=== PATIENT | female | born 1980 | race African-American/Black ===

== ENCOUNTER 2020-05-24 19:05 | Inpatient (IN) ==
[2020-05-24] MEDS ORDERED: LORazepam 2 mg VIAL 1 ml IM ONE (19:42)
[2020-05-24] MEDS ORDERED: diPHENhydraMINE IV 50 MG/ML 1 ml VIAL (BENADRYL) IM ONE (19:42)
[2020-05-24] MEDS ORDERED: Haloperidol 5 mg/ml SDV IV/IM 5 MG/ML AMP IM ONE (19:42)
[2020-05-24] MEDS ORDERED: Lorazepam PYXIS KEY ONE (20:05)
[2020-05-24 21:08] LABS: ABS Lymphocytes 1.1 10^3/ul (1.0-4.8); ABS Monocytes 0.6 10^3/ul (0-0.8); ABS Neutrophils 5.9 10^3/ul (1.5-7.7); Eosinophil % 0.1 %; Hematocrit 30 % (35-47); Hemoglobin 10.5 g/dL (12.0-16.0); Mean Corpuscular HGB Conc 35 g/dL (31-36); Mean Corpuscular Hemoglobin 32 pg (27-31); Mean Corpuscular Volume 92 fL (80-97); Mean Platelet Volume 9.5 fL (7.4-10.4); Platelet Count 155 10^3/uL (150-450); Red Cell Distribution Width 14 % (10-15); White Blood Count 7.6 10^3/uL (3.5-10.8)
[2020-05-24] MEDS ORDERED: Gadoteridol (CONTRAST) 279.3 MG/ML 10 ML IV ONE (21:12)
[2020-05-24 21:31] LABS: ALT 16 U/L (7-52); Albumin 4.1 g/dL (3.2-5.2); Albumin/Globulin Ratio 1.5 (1-3); Alkaline Phosphatase 52 U/L (34-104); BUN/Creatinine Ratio 23.7 (8-20); Blood Urea Nitrogen 18 mg/dL (6-24); CO2 Carbon Dioxide 28 mmol/L (22-32); Calcium 8.7 mg/dL (8.6-10.3); Chloride 107 mmol/L (101-111); EGFR African American 101.5 (>60); EGFR Non-African American 83.9 (>60); Globulin 2.7 g/dL (2-4); Glucose 86 mg/dL (70-100); Sodium 142 mmol/L (135-145); Total Protein 6.8 g/dL (6.4-8.9)
[2020-05-24 21:37] LABS: Anion Gap 7 mmol/L (2-11)
[2020-05-24 21:39] LABS: Acetaminophen < 15 mcg/mL; Alcohol, S < 10 mg/dL (<10); Salicylate < 2.50 mg/dL (<30)
[2020-05-24 21:54] LABS: TSH Ultra Thyroid Stim Horm 0.21 mcIU/mL (0.34-5.60)
[2020-05-24 22:26] LABS: Potassium Redraw 3.5 mmol/L (3.5-5.0)
[2020-05-25 00:11] LABS: Urine Appearance Cloudy; Urine Bilirubin Negative (Negative); Urine Blood Negative (Negative); Urine Color Yellow; Urine Glucose Negative (Negative); Urine Ketones Trace (Negative); Urine Nitrite Negative (Negative); Urine Protein 1+(30 mg/dL) (Negative); Urine Specific Gravity 1.026 (1.010-1.030); Urine Urobilinogen Negative (Negative)
[2020-05-25 00:13] LABS: Urine Bacteria 1+ (Absent); Urine Red Blood Cell Trace(0-2/hpf) (Absent); Urine Squamous Epithelial Cell Present (Absent); Urine White Blood Cell 1+(6-10/hpf) (Absent)
[2020-05-25 00:25] LABS: Urine Benzodiazepine Screen Presumptive Positive (None Detect); Urine Cannabinoids Screen None Detected (None Detect); Urine Opiates Screen None Detected (None Detect)
[2020-05-25 01:03] LABS: C Reactive Protein 5.06 mg/L (<8.01)
[2020-05-25] MEDS ORDERED: Senna TAB 8.6 mg TAB PO PRN (01:21)
[2020-05-25] MEDS ORDERED: Magnesium Hydroxide LIQ 30 ML UDC PO PRN (01:21)
[2020-05-25] MEDS ORDERED: Albuterol HFA INHALER 8 gm MDI INH PRN (01:45)
[2020-05-25 01:55] LABS: Ferritin 205.4 ng/mL (11-307)
[2020-05-25 02:11] LABS: Erythrocyte Sed Rate 10 mm/Hr (0-19)
[2020-05-25] MEDS ORDERED: chlorproMAZINE 25 MG/ML 2 ML (50 MG) IM PRN (04:19)
[2020-05-25 07:52] LABS: % Iron Saturation 25 % (15-55); Iron 54 ug/dL (50-212); Total Iron Binding Capacity 214 mcg/dL (250-450); Transferrin 153 mg/dL (203-362); Unsaturated Iron Binding < 199 ug/dL
[2020-05-25] MEDS: Cholecalciferol (VIT D3) 1,000 unit TAB PO SCH (10:33)
[2020-05-25 13:15] LABS: Thyroid Peroxidase Antibodies 0.4 IU/mL (<9)
[2020-05-25 13:18] LABS: Thyroid Peroxidase Antibodies 0.43 IU/mL (<9)
[2020-05-25] MEDS: Haloperidol 5 mg/ml SDV IV/IM 5 MG/ML AMP IM PRN ×2 (13:39→19:51)
[2020-05-25] MEDS: Diazepam INJ CARPUJECT 5 MG/ML IV PRN (15:42)
[2020-05-26] MEDS: Diazepam INJ CARPUJECT 5 MG/ML IV PRN (03:04)
[2020-05-26] MEDS: Haloperidol 5 mg/ml SDV IV/IM 5 MG/ML AMP IM PRN (03:35)
[2020-05-26] MEDS ORDERED: Ziprasidone IM 20 mg VIAL 1 ml VIAL IM ONE ×3 (04:15→07:25)
[2020-05-26] MEDS ORDERED: Diazepam INJ CARPUJECT 5 MG/ML IM PRN (05:09)
[2020-05-26] MEDS ORDERED: Diazepam INJ CARPUJECT 5 MG/ML IV ONE (07:21)
[2020-05-26] MEDS ORDERED: Haloperidol 5 mg/ml SDV IV/IM 5 MG/ML AMP IM ONE (07:22)
[2020-05-26] MEDS ORDERED: Diazepam INJ CARPUJECT 5 MG/ML IM ONE (07:25)
[2020-05-26] MEDS ORDERED: Haloperidol 5 mg/ml SDV IV/IM 5 MG/ML AMP ONE (07:26)
[2020-05-26] MEDS ORDERED: Diazepam INJ CARPUJECT 5 MG/ML IV PRN (08:21)
[2020-05-26] MEDS ORDERED: Midazolam 2 mg/2 ml VIAL 1 mg/ml 2 ml VIAL (2 mg) IV SLOW PU PRN (08:23)
[2020-05-26] MEDS ORDERED: Midazolam 10 mg/10 ml VIAL 1 mg/ml 10 ml VIAL (10 mg) ONE (08:47)
[2020-05-26] MEDS ORDERED: NS 0.9% 1000 ml BAG 1,000 ML IV SCH (09:15)
[2020-05-26] MEDS ORDERED: Dexmedetomidine 1,000 MCG in NS 0.9% 250 ml 240 ML IV SCH (10:00)
[2020-05-26] MEDS ORDERED: Lactated Ringers 1000 ml BAG 1,000 ML IV SCH (10:00)
[2020-05-26] MEDS: Cholecalciferol (VIT D3) 1,000 unit TAB PO SCH (10:25)
[2020-05-26 12:02] LABS: INR 1.2 (0.82-1.09)
[2020-05-26 12:48] LABS: Activated Partial Thrombo Time 17.9 seconds (26.0-38.0)
[2020-05-26 15:53] LABS: Body Fluid Source Cerebral Spinal
[2020-05-26 16:06] LABS: CSF Glucose 61 mg/dL (40-70)
[2020-05-26 19:24] VITALS: BP 130/87
[2020-05-26 21:16] LABS: Complement C3 76 mg/dL (75 - 175)
[2020-05-27 12:16] LABS: Smooth Muscle Antibody Negative (Negative)
[2020-05-27 15:40] LABS: Anti SSA/RO Antibody >8.0 U
[2020-05-27 16:53] LABS: Phospholipid Ab IgG < 9.4 GPL; Phospholipid Ab IgM, S < 9.4 MPL
[2020-05-29 01:56] LABS: HSV 1 PCR, CSF Negative (Negative); HSV 2 PCR, CSF Negative (Negative)
[2020-05-29 13:22] LABS: CSF VDRL Negative (Negative)
[2020-05-30 18:43] LABS: JC Virus PCR Result Negative (Negative)
[2020-05-30 18:51] LABS: CSF West Nile Virus RNA (PCR) Negative (Negative); West Nile Virus Source CSF
[2020-05-31 14:21] LABS: Albumin 3500 mg/dL; CSF Albumin 11.1 mg/dL (<=27.0); CSF IGG 1.8 mg/dL (<=8.1); Immunoglobulin G 1070 mg/dL (767 - 1590)
[2020-06-03 08:19] LABS: Anti-Glial/Neuronal Nuc Ab-1 A Negative titer (<1:240); Anti-Neuronal Nuclear Ab Type1 Negative titer (<1:240); Anti-Neuronal Nuclear Ab Type2 Negative titer (<1:240); Anti-Neuronal Nuclear Ab Type3 Negative titer (<1:240); CRMP-5 IgG Antibody Negative titer (<1:240); Purkinje Cell Cytoplasm Typ Tr Negative titer (<1:240); Purkinje Cell Cytoplasm Type 1 Negative titer (<1:240); Purkinje Cell Cytoplasm Type 2 Negative titer (<1:240)
[2020-06-07 16:43] LABS: Amphiphysin Ab, CSF Negative titer (<1:2); CRMP-5-IgG, CSF Negative titer (<1:2); PCA-Tr, CSF Negative titer (<1:2)
[2020-06-08 16:23] LABS: Oligoclonal Proteins Interpret 0 bands (<2)
== END 2020-05-26 19:00 | DRG 750 ==
LOC: ED 19:05 → MED 05-25 00:55 → ICU 05-26 08:58
PROVIDERS: ADMIT Internal Medicine; ATTEND Internal Medicine